=== PATIENT | male | born 1945 | race Caucasian/White ===

== ENCOUNTER 2016-10-12 16:51 | Observation (INO) | payer BC, MEDICARE ==
[2016-10-12] MEDS ORDERED: SODIUM CHLORIDE 0.9% 1,000 ML IV STA (17:27)
[2016-10-12] MEDS ORDERED: ASPIRIN 81 MG CHEW PO STA (17:27)
--- NOTE | 2016-10-12 17:29 | ED ---
General Adult HPI - General Source: patient, RN notes reviewed Mode of arrival: ambulatory Limitations: no limitations <Mildred Barboza - Last Filed: 10/12/16 19:36> <Jamey Reed - Last Filed: 10/12/16 19:58> - General Chief complaint: Nausea/Vomiting/Diarrhea Stated complaint: Vomiting, Chills Time Seen by Provider: 10/12/16 17:19 - History of Present Illness Initial comments: 71-year-old male presents to the emergency department with a chief complaint of lightheadedness. Patient states he was working in the garden today. Patient states that he just started to feel lightheaded. Patient states he became nauseous and vomited and he became clammy. Patient states he still feeling lightheaded and nauseous at this time. Patient states he just feels very tired. Patient states he had no chest pain or shortness of breath with this. Patient denies any significant heart history. Patient states he has had a stress test in the past he does not know when he said it was normal. Patient states he was concerned due to his symptoms were thought that he should be evaluated.Patient denies any recent fever, chills, shortness of breath, chest pain, back pain, abdominal pain, numbness or tingling, dysuria or hematuria, constipation or diarrhea, headaches or visual changes, or any other current symptoms. (Mildred Barboza) - Related Data Home Medications Medication Instructions Recorded Confirmed Aspirin EC [Ecotrin] 325 mg PO DAILY 10/12/16 10/12/16 Glucosamine/Chondro [place] A 1 tab PO DAILY 10/12/16 10/12/16 [Glucosamine-Chondroitin Tab] Multivitamins, Thera [Multivitamin 1 tab PO DAILY 10/12/16 10/12/16 (formulary)] [place]-3/Dha/Epa/Fish Oil [Fish Oil 1 cap PO DAILY 10/12/16 10/12/16 EC 1,200 mg Softgel] Allergies Allergy/AdvReac Type Severity Reaction Status Date / Time No Known Allergies Allergy Verified 10/12/16 17:51 Review of Systems ROS Other: All systems not noted in ROS Statement are negative. <Mildred Barboza - Last Filed: 10/12/16 19:36> ROS Other: All systems not noted in ROS Statement are negative. <Jamey Reed - Last Filed: 10/12/16 19:58> ROS Statement: Those systems with pertinent positive or pertinent negative responses have been documented in the HPI. Past Medical History Past Medical History: No Reported History History of Any Multi-Drug Resistant Organisms: None Reported Smoking Status: Never smoker Past Alcohol Use History: None Reported Past Drug Use History: None Reported <Mildred Barboza - Last Filed: 10/12/16 19:36> General Exam Limitations: no limitations <Mildred Barboza - Last Filed: 10/12/16 19:36> <Jamey Reed - Last Filed: 10/12/16 19:58> - General Exam Comments Initial Comments: General: The patient is awake and alert, in no distress, and does not appear acutely ill. Eye: Pupils are equal, round and reactive to light, extra-ocular movements are intact; there is normal conjunctiva bilaterally. No signs of icterus. Ears, nose, mouth and throat: There are moist mucous membranes and no oral lesions. Neck: The neck is supple, there is no tenderness. Cardiovascular: There is a regular rate and rhythm. No murmur, rub or gallop is appreciated. Respiratory: Lungs are clear to auscultation, respirations are non-labored, breath sounds are equal. No wheezes, stridor, rales, or rhonchi. Gastrointestinal: Soft, non-distended, non-tender abdomen without masses or organomegaly noted. There is no rebound or guarding present. No CVA tenderness. Bowel sounds are unremarkable. Back: There is no tenderness to palpation in the midline. There is no obvious deformity. No rashes noted. Musculoskeletal: Normal ROM, no tenderness, There is no pedal edema. There is no calf tenderness or swelling. Sensation intact. Pulses equal bilaterally 2+. Neurological: CN II-XII intact, There are no obvious motor or sensory deficits. Coordination appears grossly intact. Speech is normal. Skin: Skin is warm and dry and no rashes or lesions are noted. Psychiatric: Cooperative, appropriate mood & affect, normal judgment. (Mildred Barboza) Course <Mildred Barboza - Last Filed: 10/12/16 19:36> <Jamey Reed - Last Filed: 10/12/16 19:58> Vital Signs 10/12/16 10/12/16 10/12/16 17:15 18:06 18:07 Temperature 97 F L Pulse Rate 59 L Respiratory 16 Rate Blood Pressure 141/83 Blood Pressure 146/70 168/82 [Right Arm] O2 Sat by Pulse 97 Oximetry 10/12/16 19:17 Temperature 97.3 F L Pulse Rate 71 Respiratory 18 Rate Blood Pressure 146/76 Blood Pressure [Right Arm] O2 Sat by Pulse 96 Oximetry - Reevaluation(s) Reevaluation #1: 10/12/16 19:58 I personally do do a [id number] examination the patient did discuss findings with him and his . Patient currently is somewhat nauseated and lightheaded he has no chest pain at this time his initial cardiac workup was negative concern is for a sub-clinical evaluation at this time. We admitted for serial enzymes. I did discuss case Dr. Elliott (Jamey Reed) Medical Decision Making - Lab Data Result diagrams: 10/12/16 17:44 10/12/16 17:44 - EKG Data -: EKG Interpreted by Me <Mildred Barboza - Last Filed: 10/12/16 19:36> - Lab Data Result diagrams: 10/12/16 17:44 10/12/16 17:44 <Jamey Reed - Last Filed: 10/12/16 19:58> - Medical Decision Making 71-year-old male presents to emergency room chief complaint of lightheadedness. At this time patient's orthostatics revealed does show an elevation in blood pressure upon standing. His heart rate does increase as well. Time there is concern this could have a cardiac component. This time we will admit the patient for continued cardiac rule out. This is discussed with the patient who is in agreement with the plan. QUESTIONS have been answered. We will continue fluid restriction as well due to a mild aspect of dehydration noted. (Mildred Barboza ) - Lab Data Lab Results 10/12/16 10/12/16 10/12/16 Range/Units 17:44 17:44 17:44 WBC 9.3 (3.8-10.6) k/uL RBC 4.69 (4.30-5.90) m/uL Hgb 14.4 (13.0-17.5) gm/dL Hct 42.1 (39.0-53.0) % MCV 89.8 (80.0-100.0) fL MCH 30.8 (25.0-35.0) pg MCHC 34.3 (31.0-37.0) g/dL RDW 12.9 (11.5-15.5) % Plt Count 229 (150-450) k/uL Neutrophils % 77 % Lymphocytes % 10 % Monocytes % 6 % Eosinophils % 4 % Basophils % 1 % Neutrophils # 7.2 (1.3-7.7) k/uL Lymphocytes # 1.0 (1.0-4.8) k/uL Monocytes # 0.6 (0-1.0) k/uL Eosinophils # 0.4 (0-0.7) k/uL Basophils # 0.1 (0-0.2) k/uL PT (9.0-12.0) sec INR (<1.1) APTT (22.0-30.0) sec Sodium 144 (137-145) mmol/L Potassium 5.1 (3.5-5.1) mmol/L Chloride 107 (98-107) mmol/L Carbon Dioxide 26 (22-30) mmol/L Anion Gap 11 mmol/L BUN 29 H (9-20) mg/dL Creatinine 1.20 (0.66-1.25) mg/dL Est GFR (MDRD) Af Amer >60 (>60 ml/min/1.73 sqM) Est GFR (MDRD) Non-Af 59 (>60 ml/min/1.73 sqM) Glucose 108 H (74-99) mg/dL Calcium 9.7 (8.4-10.2) mg/dL Magnesium 2.2 (1.6-2.3) mg/dL Total Bilirubin 0.4 (0.2-1.3) mg/dL AST 39 (17-59) U/L ALT 37 (21-72) U/L Alkaline Phosphatase 88 (38-126) U/L Total Creatine Kinase 140 (55-170) U/L CK-MB (CK-2) 1.4 (0.0-2.4) ng/mL CK-MB (CK-2) Rel Index 1.0 Troponin I <0.012 (0.000-0.034) ng/mL Total Protein 7.3 (6.3-8.2) g/dL Albumin 4.6 (3.5-5.0) g/dL Urine Color Urine Appearance (Clear) Urine pH (5.0-8.0) Ur Specific [place] (1.001-1.035) Urine Protein (Negative) Urine Glucose (UA) (Negative) Urine Ketones (Negative) Urine Blood (Negative) Urine Nitrite (Negative) Urine Bilirubin (Negative) Urine Urobilinogen (<2.0) mg/dL Ur Leukocyte Esterase (Negative) 10/12/16 10/12/16 Range/Units 17:44 18:08 WBC (3.8-10.6) k/uL RBC (4.30-5.90) m/uL Hgb (13.0-17.5) gm/dL Hct (39.0-53.0) % MCV (80.0-100.0) fL MCH (25.0-35.0) pg MCHC (31.0-37.0) g/dL RDW (11.5-15.5) % Plt Count (150-450) k/uL Neutrophils % % Lymphocytes % % Monocytes % % Eosinophils % % Basophils % % Neutrophils # (1.3-7.7) k/uL Lymphocytes # (1.0-4.8) k/uL Monocytes # (0-1.0) k/uL Eosinophils # (0-0.7) k/uL Basophils # (0-0.2) k/uL PT 9.8 (9.0-12.0) sec INR 1.0 (<1.1) APTT 22.2 (22.0-30.0) sec Sodium (137-145) mmol/L Potassium (3.5-5.1) mmol/L Chloride (98-107) mmol/L Carbon Dioxide (22-30) mmol/L Anion Gap mmol/L BUN (9-20) mg/dL Creatinine (0.66-1.25) mg/dL Est GFR (MDRD) Af Amer (>60 ml/min/1.73 sqM) Est GFR (MDRD) Non-Af (>60 ml/min/1.73 sqM) Glucose (74-99) mg/dL Calcium (8.4-10.2) mg/dL Magnesium (1.6-2.3) mg/dL Total Bilirubin (0.2-1.3) mg/dL AST (17-59) U/L ALT (21-72) U/L Alkaline Phosphatase (38-126) U/L Total Creatine Kinase (55-170) U/L CK-MB (CK-2) (0.0-2.4) ng/mL CK-MB (CK-2) Rel Index Troponin I (0.000-0.034) ng/mL Total Protein (6.3-8.2) g/dL Albumin (3.5-5.0) g/dL Urine Color Yellow Urine Appearance Clear (Clear) Urine pH 6.5 (5.0-8.0) Ur Specific [place] 1.017 (1.001-1.035) Urine Protein Negative (Negative) Urine Glucose (UA) Negative (Negative) Urine Ketones Trace H (Negative) Urine Blood Negative (Negative) Urine Nitrite Negative (Negative) Urine Bilirubin Negative (Negative) Urine Urobilinogen <2.0 (<2.0) mg/dL Ur Leukocyte Esterase Negative (Negative) 10/12/16 17:43 normal sinus rhythm 68 bpm, normal axis, no atopy, no S-T depressions or elevations, (Mildred Barboza) Disposition Time of Disposition: 18:38 Decision Date: 10/12/16 Decision Time: 18:38 <Mildred Barboza - Last Filed: 10/12/16 19:36> <Jamey Reed - Last Filed: 10/12/16 19:58> Clinical Impression: Lightheadedness, Dehydration, Nausea & vomiting Disposition: ADMITTED IP TO THIS [facility] Condition: Stable Referrals: Geri Castaneda MD [Primary Care Provider] - 1-2 days
[2016-10-12 18:03] LABS: Basophils # (A) 0.1 k/uL (0-0.2); Basophils % (A) 1 %; CH 31.3; Eosinophils # (A) 0.4 k/uL (0-0.7); Eosinophils % (A) 4 %; HCT 42.1 % (39.0-53.0); HDW 2.57; HGB 14.4 gm/dL (13.0-17.5); Luc % (Auto) 2; Lymphocytes % (A) 10 %; MCH 30.8 pg (25.0-35.0); MCHC 34.3 g/dL (31.0-37.0); MCV 89.8 fL (80.0-100.0); Mean Platelet Volume 7.1; Monocytes # (A) 0.6 k/uL (0-1.0); Monocytes % (A) 6 %; Neutrophils # (A) 7.2 k/uL (1.3-7.7); Neutrophils % (A) 77 %; RBC 4.69 m/uL (4.30-5.90); RDW 12.9 % (11.5-15.5); WBC 9.3 k/uL (3.8-10.6)
[2016-10-12 18:04] LABS: ALT 37 U/L (21-72); AST 39 U/L (17-59); Alkaline Phosphatase 88 U/L (38-126); Anion Gap 11 mmol/L; Blood Urea Nitrogen 29 mg/dL (9-20); Calcium 9.7 mg/dL (8.4-10.2); Carbon Dioxide 26 mmol/L (22-30); Chloride 107 mmol/L (98-107); Glucose 108 mg/dL (74-99); Magnesium 2.2 mg/dL (1.6-2.3); Non-African American GFR(MDRD) 59 (>60 ml/min/1.73 sqM); Potassium 5.1 mmol/L (3.5-5.1); Sodium 144 mmol/L (137-145); Total Bilirubin 0.4 mg/dL (0.2-1.3); Total Protein 7.3 g/dL (6.3-8.2)
--- NOTE | 2016-10-12 18:05 | XR ---
EXAMINATION TYPE: XR chest 2V DATE OF EXAM: 10/12/2016 COMPARISON: NONE INDICATION: Chest pain, Vomiting TECHNIQUE: Frontal and lateral views of the chest are obtained. FINDINGS: The heart size is normal. The pulmonary vasculature is normal. The lungs are clear. The lateral projection there is some blunting the posterior costophrenic angle. Small posterior pleural effusion should be considered, likely on the left. IMPRESSION: 1. Possible small posterior left pleural effusion. 2. Two-view chest is otherwise unremarkable.
[2016-10-12 18:13] LABS: Partial Thromboplastin Time 22.2 sec (22.0-30.0); Prothrombin Time 9.8 sec (9.0-12.0)
[2016-10-12 18:18] LABS: Creatine Kinase 140 U/L (55-170)
[2016-10-12 18:19] LABS: Appearance,Urine Clear (Clear); Bilirubin,Urine Negative (Negative); Glucose,Urine (UA) Negative (Negative); Ketones,Urine Trace (Negative); Leukocyte Esterase,Urine Negative (Negative); Nitrite,Urine Negative (Negative); PH, Urine 6.5 (5.0-8.0); Protein,Urine Negative (Negative); Specific Gravity,Urine 1.017 (1.001-1.035); UA Billing (MACRO vs. MICRO) CHEM; Urobilinogen,Urine <2.0 mg/dL (<2.0)
[2016-10-12 18:30] LABS: Creatine Kinase MB 1.4 ng/mL (0.0-2.4); Troponin I <0.012 ng/mL (0.000-0.034)
[2016-10-12] MEDS ORDERED: NITROGLYCERIN SL TABS 0.4 MG TAB SUBLINGUAL PRN (19:37)
[2016-10-12] MEDS: SODIUM CHLORIDE 0.9% 1,000 ML IV SCH (20:37)
[2016-10-12] MEDS ORDERED: ONDANSETRON 4 MG/2 ML VIAL IVP PRN (22:04)
[2016-10-13 01:27] LABS: Creatine Kinase 111 U/L (55-170)
[2016-10-13 01:40] LABS: Creatine Kinase MB 1.3 ng/mL (0.0-2.4); Troponin I <0.012 ng/mL (0.000-0.034)
[2016-10-13] MEDS: SODIUM CHLORIDE 0.9% 1,000 ML IV SCH (05:58)
[2016-10-13 06:06] LABS: Cholesterol 133 mg/dL (<200); HDL Cholesterol 35 mg/dL (40-60); Triglycerides 102 mg/dL (<150)
[2016-10-13 06:21] LABS: Creatine Kinase 105 U/L (55-170)
[2016-10-13 06:35] LABS: Troponin I <0.012 ng/mL (0.000-0.034)
[2016-10-13] MEDS ORDERED: GLUCOSAMINE PO SCH (09:00)
[2016-10-13] MEDS ORDERED: CHONDRO SU A PO SCH (09:00)
[2016-10-13] MEDS ORDERED: NON-FORMULARY DRUG (Omega-3/Dha/Epa/Fish Oil [Fish Oil Ec 1,200 Mg Softgel] 1 CAP) PO SCH (09:00)
--- NOTE | 2016-10-13 09:12 | CONS ---
DATE OF CONSULTATION: Mr. Manzo is a 71-year-old gentleman with history of dizziness that he has had for a while, came in to hospital having had episodes of dizziness. He has symptoms of vertigo and these started while he was working in the garden and was somewhat dehydrated. Since coming in he is free of dizziness at rest. Cardiac enzymes have been negative, remains in sinus rhythm. EKG does not reveal ischemic changes. His dizziness is chronic, has been there for a while and I do not believe it is cardiac in origin. Past medical history significant for dizziness. Medications at home include: 1. Aspirin. 2. Multivitamin. 3. Fish oil. ALLERGIES: No known drug allergies. FAMILY HISTORY: Negative for premature coronary artery disease. SOCIAL HISTORY: Negative for smoking, ETOH abuse or drug abuse. REVIEW OF SYSTEMS: HEENT: Significant for dizziness. CARDIAC: As described above. RESPIRATORY: Negative. GI: Negative. GENITOURINARY: Negative. MUSCULOSKELETAL: Significant for arthritis. PSYCHOSOCIAL: Negative. ENDOCRINE: Negative. CONSTITUTIONAL: Negative. Oncological: Negative. The rest of the system review is not relevant. On exam, comfortable at rest. Vital signs are stable. There is no jugular venous distention. Carotid upstroke is normal. There is no bruit. Chest exam reveals good air entry bilaterally. Heart exam reveals first and second heart sounds. No gallop. No murmur, no rub. ABDOMEN: Soft, nontender. Exam of the extremities did not reveal edema. Peripheral pulses are felt. [employer] exam did not reveal focal neurological deficits. Labs show a hemoglobin of 14.4, platelet count is 229. Potassium is 5.1. BUN is 59. Creatinine is 1.2. Three sets of cardiac enzymes are negative. Lipid profile shows a total cholesterol of 133 with an LDL cholesterol of 78. ASSESSMENT: Dizziness, probably related inner ear problems. However, I am going to obtain a 2-D echo to assess his LV function and if the dizziness improves, he can be discharged home and I will consider further work-up as outpatient and I may do a carotid duplex on him if necessary and a stress test, but we do not need to do these at this time. Thank you for allowing us to participate in the care of this pleasant gentleman.
[2016-10-13] MEDS: ASPIRIN 325 MG TAB PO SCH (09:30)
--- NOTE | 2016-10-13 09:46 | P.HPIM ---
History of Present Illness H&P Date: 10/13/16 Chief Complaint: Dizziness lightheadedness A very pleasant 71-year-old male who stated on the day of admission developed onset of dizziness lightheadedness. Patient stated that he had been out working in the garden had not adequately hydrated himself and had not eaten. Patient states he has a history of dizziness was told by his PCP that he had an inner ear that sometimes causes a sensation of dizziness.. Patient stated with this episode he started to feel the sensation of lightheadedness. He felt nauseated did vomit and did break out in a sweat. He stated he also felt extremely tired and fatigued. Patient denied any chest pain or shortness of breath with the episode. Given the above clinical presentation patient felt he should be evaluated in the emergency room emergency room heart rate was in the 70s patient was afebrile the blood sugar in the emergency room was 108. Patient denies any prior episodes. Patient's gives no significant past medical history. States he takes no prescription medication takes a baby aspirin daily subsequent the patient was admitted to the services of the attending. A cardiology consultation requested. Cardiac enzymes 3 sets have been negative. In the emergency room the 12-lead EKG showed no acute changes to suggest ischemia. Patient states he did have a stress test in the past and he was told that there were no acute findings. Patient states he's normally an active individual with activity does not experience any shortness of breath dizziness lightheadedness or chest pain Patient states he is scheduled this Saturday for a routine yearly physical by his PCP Dr. castaneda Currently the patient has been up to the bathroom and back and ambulating in the room and states is not dizzy or lightheaded Review of Systems Essentially unremarkable except as mentioned in the present illness Past Medical History Past Medical History: Cancer Additional Past Medical History / Comment(s): SKIN CA (FOREHEAD) REMOVED, COLON POLYPS REMOVED(BENIGN), MIGRAINES, ARTHRITIS History of Any Multi-Drug Resistant Organisms: None Reported Additional Past Surgical History / Comment(s): COLONOSCOPY, SKIN CANCER ON FOREHEAD REMOVED, TOOTH EXTRACTED AND AN IMPLANT DONE. 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 NO SERVICE IN BACKGROUND. RETIRED FROM THE [employer]ICE WORKED IN [employer]. Smoking Status: Former smoker Past Alcohol Use History: Occasional Additional Past Alcohol Use History / Comment(s): SMAOKED FROM [id number] Past Drug Use History: None Reported - Past Family History Mother Family Medical History: Cancer Additional Family Medical History / Comment(s): BREAST CANCER Father Family Medical History: Myocardial Infarction (MS), Rheumatoid Arthritis (RA) Additional Family Medical History / Comment(s): SEVERAL MS'S Medications and Allergies Home Medications Medication Instructions Recorded Confirmed Type Aspirin EC [Ecotrin] 325 mg PO DAILY 10/12/16 10/12/16 History Glucosamine/Chondro [place] A 1 tab PO DAILY 10/12/16 10/12/16 History [Glucosamine-Chondroitin Tab] Multivitamins, Thera [Multivitamin 1 tab PO DAILY 10/12/16 10/12/16 History (formulary)] [place]-3/Dha/Epa/Fish Oil [Fish Oil 1 cap PO DAILY 10/12/16 10/12/16 History EC 1,200 mg Softgel] Allergies Allergy/AdvReac Type Severity Reaction Status Date / Time No Known Allergies Allergy Verified 10/12/16 22:01 Physical Exam Vitals: Vital Signs Temp Pulse Pulse Resp BP BP Pulse Ox 10/13/16 08:00 98.2 F 64 18 134/71 96 10/13/16 04:00 97.8 F 65 18 123/66 97 10/13/16 00:00 18 10/12/16 23:53 97.9 F 69 18 151/71 99 10/12/16 22:14 18 10/12/16 21:51 97.8 F 66 18 152/77 96 10/12/16 20:33 97.9 F 64 18 153/74 96 10/12/16 20:10 69 95 10/12/16 19:17 97.3 F L 71 18 146/76 96 10/12/16 18:07 168/82 10/12/16 18:06 146/70 10/12/16 17:15 97 F L 59 L 16 141/83 97 Intake and Output 10/12/16 10/13/16 10/13/16 22:59 06:59 14:59 Intake Total 240 Balance 240 Intake: Oral 240 Other: # Voids 1 1 Weight 83.915 kg Physical exam 71-year-old gentleman resting in bed does not appear in any acute distress pleasant cooperative oriented 3 Lungs essentially clear adequate air movement on room air no cough noted Heart S1-S2 audible and regular no murmur noted denying chest pain abdomen soft nontender reports no nausea vomiting Extremities no edema noted Results CBC & Chem 7: 10/12/16 17:44 10/12/16 17:44 Labs: Abnormal Lab Results - Last 24 Hours (Table) 10/12/16 10/12/16 10/13/16 Range/Units 17:44 18:08 05:22 BUN 29 H (9-20) mg/dL Glucose 108 H (74-99) mg/dL HDL Cholesterol 35 L (40-60) mg/dL Urine Ketones Trace H (Negative) Assessment and Plan Plan: Impression Present on admission dizziness lightheadedness suspect due to dehydration Present on admission hyperkalemia suspect due to dehydration Present on admission acute renal insufficiency suspect due to dehydration History of an inner ear problem Plan Cardiology recommends a 2-D echocardiogram to assess the LV function if the dizziness improves from a cardiac perspective patient could be discharged home cardiology indicates that further workup as an outpatient could be done such as carotid Doppler a possible stress test but did not need to be done at this time Probable discharge within the next 24 hours Increase activity evaluate Patient is scheduled this October 15 to see his PCP Dr. Anusha Castaneda for a yearly physical The above dictated assessment and findings were discussed with dr holloway . Impression and the plan of care have been dictated as directed. Adrienne Kang nurse practitioner acting as a scribe for dr holloway
[2016-10-13] MEDS ORDERED: MULTIVITAMINS, THERA 1 EACH TAB PO SCH (12:00)
[2016-10-13] MEDS ORDERED: SODIUM CHLORIDE 0.9% 1,000 ML IV STA (12:09)
[2016-10-13] MEDS ORDERED: MECLIZINE 12.5 MG TAB PO PRN (12:11)
--- NOTE | 2016-10-13 12:42 | ECHOF ---
Referral Reason:chest pain MEASUREMENTS -------- HEIGHT: 177.8 cm WEIGHT: 83.9 kg BP: 140/40 RVIDd: 2.6 cm (< 3.3) IVSd: 1.2 cm (0.6 - 1.1) LVIDd: 4.2 cm (3.9 - 5.3) LVPWd: 1.2 cm (0.6 - 1.1) IVSs: 1.6 cm LVIDs: 3.5 cm LVPWs: 1.3 cm LA Diam: 3.9 cm (2.7 - 3.8) LAESV Index (A-L): 37.80 ml/m Ao Diam: 3.4 cm (2.0 - 3.7) AV Cusp: 1.8 cm (1.5 - 2.6) LA Diam: 4.6 cm (2.7 - 3.8) MV EXCURSION: 21.866 mm (> 18.000) MV EF SLOPE: 92 mm/s (70 - 150) EPSS: 0.4 cm MV E Andre: 0.99 m/s MV DecT: 223 ms MV A Andre: 0.79 m/s MV E/A Ratio: 1.26 AR PHT: 585 ms RAP: 5.00 mmHg RVSP: 42.71 mmHg FINDINGS -------- Sinus rhythm. This was a technically adequate study. There is mild concentric left ventricular hypertrophy. Overall left ventricular systolic function is low-normal with, an EF between 50 - 55 %. The right ventricle is normal in size. LA is moderately dilated 34-39 ml/m2 The right atrial size is normal. There is mild aortic valve sclerosis. There is mild aortic regurgitation. Mild mitral annular calcification present. Mild mitral regurgitation is present. Mild tricuspid regurgitation present. There is mild pulmonary hypertension. The right ventricular systolic pressure, as measured by Doppler, is 42.71mmHg. Trace/mild (physiologic) pulmonic regurgitation. The aortic root size is normal. There is no pericardial effusion. CONCLUSIONS -------- 1. There is mild concentric left ventricular hypertrophy. 2. The right ventricular systolic pressure, as measured by Doppler, is 42.71mmHg. 3. Trace/mild (physiologic) pulmonic regurgitation. 4. The aortic root size is normal. 5. There is no pericardial effusion. 6. Overall left ventricular systolic function is low-normal with, an EF between 50 - 55 %. 7. LA is moderately dilated 34-39 ml/m2 8. There is mild aortic valve sclerosis. 9. There is mild aortic regurgitation. 10. Mild mitral annular calcification present. 11. Mild mitral regurgitation is present. 12. Mild tricuspid regurgitation present. 13. There is mild pulmonary hypertension. SIDE FRAMER: Mirna Velasquez RDCS
[2016-10-14 06:53] LABS: Basophils % (A) 1 %; CH 30.7; CHCM 33.2; Eosinophils # (A) 0.6 k/uL (0-0.7); Eosinophils % (A) 9 %; HCT 40.2 % (39.0-53.0); HDW 2.43; HGB 13.3 gm/dL (13.0-17.5); Luc # (Auto) 0.18; Luc % (Auto) 3; Lymphocytes # (A) 1.6 k/uL (1.0-4.8); Lymphocytes % (A) 26 %; MCH 30.6 pg (25.0-35.0); MCV 92.6 fL (80.0-100.0); Monocytes # (A) 0.5 k/uL (0-1.0); Monocytes % (A) 7 %; Neutrophils # (A) 3.5 k/uL (1.3-7.7); Neutrophils % (A) 55 %; RBC 4.34 m/uL (4.30-5.90); RDW 13.3 % (11.5-15.5); WBC 6.3 k/uL (3.8-10.6); WBC (Perox) 6.39
[2016-10-14 07:08] LABS: ALT 30 U/L (21-72); AST 24 U/L (17-59); Alkaline Phosphatase 68 U/L (38-126); Anion Gap 6 mmol/L; Blood Urea Nitrogen 17 mg/dL (9-20); Calcium 8.7 mg/dL (8.4-10.2); Carbon Dioxide 29 mmol/L (22-30); Chloride 106 mmol/L (98-107); Glucose 89 mg/dL (74-99); Non-African American GFR(MDRD) >60 (>60 ml/min/1.73 sqM); Potassium 4.8 mmol/L (3.5-5.1); Sodium 141 mmol/L (137-145); Total Bilirubin 0.4 mg/dL (0.2-1.3); Total Protein 5.9 g/dL (6.3-8.2)
[2016-10-14] MEDS: ASPIRIN 325 MG TAB PO SCH (08:26)
[2016-10-14 08:38] VITALS: BP 135/71; PULSE 64; RESP 16; TEMP 98
--- NOTE | 2016-10-14 10:07 | P.DS ---
Providers Date of admission: 10/12/16 20:49 Expected date of discharge: 10/14/16 Attending physician: Patt Elliott Consults: 10/12/16 19:37 Consult Physician Urgent Consulting Provider: Leonardo Marsh Consult Reason/Comments: lightheadedness Do you want consulting provider notified?: Yes, Notify in am Primary care physician: Geri Castaneda [facility] Course: A very pleasant 71-year-old male who stated on the day of admission developed onset of dizziness lightheadedness. Patient stated that he had been out working in the garden had not adequately hydrated himself and had not eaten. Patient states he has a history of dizziness was told by his PCP that he had an inner ear that sometimes causes a sensation of dizziness.. Patient stated with this episode he started to feel the sensation of lightheadedness. He felt nauseated did vomit and did break out in a sweat. He stated he also felt extremely tired and fatigued. Patient denied any chest pain or shortness of breath with the episode. Given the above clinical presentation patient felt he should be evaluated in the emergency room emergency room heart rate was in the 70s patient was afebrile the blood sugar in the emergency room was 108. Patient denies any prior episodes. Patient's gives no significant past medical history. States he takes no prescription medication takes a baby aspirin daily subsequent the patient was admitted to the services of the attending. A cardiology consultation requested. Cardiac enzymes 3 sets have been negative. In the emergency room the 12-lead EKG showed no acute changes to suggest ischemia. Patient states he did have a stress test in the past and he was told that there were no acute findings. Patient states he's normally an active individual with activity does not experience any shortness of breath dizziness lightheadedness or chest pain Patient states he is scheduled this Saturday for a routine yearly physical by his PCP Dr. castaneda Patient was started on IV fluid for rehydration orthostatic blood pressures were negative patient underwent an echocardiogram which showed left contiguous systolic function low normal with an EF between 50 and 55%. Mild pulmonary hypertension. Labs were repeated on the fourth potassium 4.8 creatinine 1 the BUNs 17 hemoglobin 13.3 white count 6.3. Chest x-ray showed no acute pulmonary process patient denied any dizziness lightheadedness chest pain or shortness of breath. Patient was up ambulating independently on the unit was asymptomatic. Patient was felt to be hemodynamically stable and appropriate proceed with a discharge to home. Cardiology indicated no further cardiac workup at this time Impression Present on admission dizziness lightheadedness suspect due to dehydration Present on admission hyperkalemia suspect due to dehydration Present on admission acute renal insufficiency suspect due to dehydration History of an inner ear problem The above dictated assessment and findings were discussed with dr elliott . Impression and the plan of care have been dictated as directed. Adrienne Kang nurse practitioner acting as a scribe for dr elliott Patient Condition at Discharge: Stable Plan - Discharge Summary New Discharge Prescriptions: New Meclizine [Antivert] 12.5 mg PO QID PRN tab PRN Reason: Vertigo Continue Multivitamins, Thera [Multivitamin (formulary)] 1 tab PO DAILY Aspirin EC [Ecotrin] 325 mg PO DAILY [place]-3/Dha/Epa/Fish Oil [Fish Oil EC 1,200 mg Softgel] 1 cap PO DAILY Glucosamine/Chondro Norton A [Glucosamine-Chondroitin Tab] 1 tab PO DAILY Discharge Medication List Aspirin EC [Ecotrin] 325 mg PO DAILY 10/12/16 [History] Glucosamine/Chondro Norton A [Glucosamine-Chondroitin Tab] 1 tab PO DAILY 10/12/16 [ History] Multivitamins, Thera [Multivitamin (formulary)] 1 tab PO DAILY 10/12/16 [History ] [place]-3/Dha/Epa/Fish Oil [Fish Oil EC 1,200 mg Softgel] 1 cap PO DAILY 10/12/16 [History] Meclizine [Antivert] 12.5 mg PO QID PRN tab 10/14/16 [Rx] Follow up Appointment(s)/Referral(s): Franco Cuenca MD [STAFF PHYSICIAN] - 4 Weeks (Message was left at office to call patient to arrange a follow up appointment. If you do not hear from office within a week, please call to follow up.) Geri Castaneda MD [Primary Care Provider] - 1-2 days Patient Instructions/Handouts: Dehydration (GEN) Discharge Disposition: HOME SELF-CARE
== END 2016-10-14 10:40 | disposition home or self-care (01) ==
LOC: EC 16:51 → 3OBS 20:49
PROVIDERS: ADMIT Internal Medicine; ATTEND Internal Medicine
DX: E86.0 Dehydration (principal); Z79.899 Other long term (current) drug therapy; Z79.82 Long term (current) use of aspirin; R11.2 Nausea with vomiting, unspecified; M19.90 Unspecified osteoarthritis, unspecified site; Z86.010 Personal history of colon polyps; G43.909 Migraine, unspecified, not intractable, without status migrainosus; Z85.828 Personal history of other malignant neoplasm of skin; Z87.891 Personal history of nicotine dependence; Z80.3 Family history of malignant neoplasm of breast; Z82.49 Family history of ischemic heart disease and other diseases of the circulatory system; E87.5 Hyperkalemia; N28.9 Disorder of kidney and ureter, unspecified; I27.2 Other secondary pulmonary hypertension
CPT/HCPCS: 96360; 96361; 99285; 36415; 93005; 93306; 80061; 80053 ×2; 82550 ×2; 82553 ×2; 83735; 84484 ×2; 85025 ×2; 85610; 85730; 81003; 71020; G0378 ×3

== ENCOUNTER → 2017-01-28 | Outpatient (CLI) | payer BC, MEDICARE ==
[2017-01-28 10:26] LABS: Blood Urea Nitrogen 21 mg/dL (9-20); Non-African American GFR(MDRD) >60 (>60 ml/min/1.73 sqM)
--- NOTE | 2017-01-28 11:27 | CT ---
EXAMINATION TYPE: CT sinus w con DATE OF EXAM: 01/28/2017 COMPARISON: NONE HISTORY: Left sided facial pain and headache per patient. Dizziness and chronic sinusitis per order. CT DLP: 572 mGycm Automated exposure control for dose reduction was used. CONTRAST: CT scan of the facial bones is performed with IV Contrast, patient injected with 100 mL of Omnipaque 300. TECHNIQUE: CT scan of the sinuses is performed without contrast, axial images are obtained, coronal r eformatted images are also reviewed. FINDINGS: There is mild mucosal thickening involving ethmoid sinuses bilaterally. There is more patch y opacity throughout the anterior and posterior ethmoid sinuses. There is mild mucosal thickening inv olving the frontal sinuses with more focal opacification inferiorly in right frontal sinus could refl ect irregular mucosal thickening or more likely some acute sinus disease. Maxillary and sphenoid sinu ses bilaterally are felt within normal limits. The ostiomeatal complex is patent bilaterally on the c oronal images seen best on coronal image 21. Nasal septum is deviated to right of midline. Visualized portion of mastoid air cells show no abnormal opacification. The globes are intact bilate rally. No suspicious enhancement is noted. IMPRESSION: Acute on chronic paranasal sinus disease involving bilateral ethmoid sinus and right fron matty sinus as detailed above.
== END | disposition home or self-care (01) ==
LOC: RADCTMAIN 09:52
PROVIDERS: ATTEND Family Medicine
DX: J34.89 Other specified disorders of nose and nasal sinuses (principal); J32.0 Chronic maxillary sinusitis
CPT/HCPCS: 82565; 84520; 36415; 70487; Q9967

== ENCOUNTER 2017-12-30 10:42 | Day surgery (SDC) | payer BC, MEDICARE ==
[2017-12-26 10:24] VITALS: BMI 25.4
[~2017-12-30 10:42] MED LIST: LACTATED RINGERS 1,000 ML IV SCH
[2017-12-30 11:49] VITALS: RESP 18; TEMP 97.9
[2017-12-30] MEDS ORDERED: LIDOCAINE 1% 20 ML VIAL (10MG/ML) FOR IV START INTRADERMA ONE (11:56)
[2017-12-30] MEDS ORDERED: LIDOCAINE 1% INJ 10MG/ML (20 ML MDV) ONE (12:33)
[2017-12-30] MEDS ORDERED: PROPOFOL 10 MG/ML 20 ML VIAL IV ONE (12:33)
--- NOTE | 2017-12-30 13:19 | P.PCN ---
Date of Procedure: 12/30/17 Procedure(s) Performed: Procedure: Colonoscopy and polypectomy. Preoperative diagnosis: Screening for neoplasia, patient has history of polyps. Was operated diagnosis: 2 small distal sigmoid polyps snared but no large polyps or cancer. Preparation: HalfLytely prep. Sedation: Was provided by anesthesia. Brief clinical history: The patient is a 72-year-old male who is scheduled for this evaluation for screening for neoplasia because of history of polyps. His last exam was in March 2012. The patient has no abdominal complaints, bleeding or anemia. Procedure: With the patient on his left lateral decubitus position and after informed consent and adequate sedation, the perianal area was inspected and it did not show any fissures or fistulas. There were no masses felt on digital rectal examination. The Olympus CFQ 160L video colonoscope was then inserted in the rectum in the usual fashion and advanced to the cecum. There were 2 small polyps in the distal sigmoid which were snared and suctioned. No large polyps or cancer was seen or any other significant pathology. I retroflexed the endoscope in the rectum before the endoscope was withdrawn. The patient tolerated the procedure well. Plan: The patient was reassured. He will follow up with you as planned consideration can be given for repeat exam in 5 years depending on his overall health at that time. He would be discussing that with you.
[2017-12-30 13:26] VITALS: BP 138/69; PULSE 57
== END 2017-12-30 13:43 | disposition home or self-care (01) ==
LOC: ORWHC2ENDO 10:42
DX: Z12.11 Encounter for screening for malignant neoplasm of colon (principal); D12.5 Benign neoplasm of sigmoid colon; M19.90 Unspecified osteoarthritis, unspecified site; Z79.82 Long term (current) use of aspirin; Z79.899 Other long term (current) drug therapy; Z86.010 Personal history of colon polyps; Z85.828 Personal history of other malignant neoplasm of skin
CPT/HCPCS: 45385; 88305; J2001; J2704

== ENCOUNTER 2021-01-04 10:18 | Day surgery (SDC) | payer BC, OTHER ==
[2020-12-30 15:34] VITALS: BMI 26.5
[~2021-01-04 10:18] MED LIST changes: +CYCLOPENTOLATE 1% OPHTH SOLN 2 ML BTL OP PRN; +MOXIFLOXACIN HCL 0.5% DROPS 3 ML BTL OP PRN; +PHENYLEPHRINE 2.5% OPHTH DRP 2ML OP PRN; +PILOCARPINE 2% OPHTH DROPS 15 ML BTL OP PRN; +TETRACAINE 0.5% OPHTH (PF) DROPS 4 ML BTL OP PRN; +TIMOLOL 0.5% OPHTH DROPS 5 ML BTL OP PRN; +TOBRA-DEXAMET 0.3-0.1% OPHTH DROPS 2.5 ML BTL OPHTHALMIC PRN
[2021-01-04 11:17] VITALS: RESP 16; TEMP 97.6
[2021-01-04] MEDS ORDERED: LIDOCAINE 1% (10MG/ML) FOR IV START INTRADERMA ONE (11:17)
[2021-01-04] MEDS ORDERED: MIDAZOLAM 2 MG/2 ML VIAL ONE (11:35)
[2021-01-04] MEDS ORDERED: fentaNYL (PF) 50 MCG/ML 2 ML AMP ONE (11:35)
[2021-01-04] MEDS ORDERED: EPINEPHrine (PF) 0.3 ML in BALANCED SALT IRRIG SOLN COMB2 500 ML IRRIGATION ONE (11:46)
[2021-01-04] MEDS ORDERED: LIDOCAINE 1% (PF) 10MG/ML VIAL MISCELLANE ONE (11:49)
[2021-01-04] MEDS ORDERED: BALANCED SALT IRRIG SOLN COMB2 15 ML IRRIG.SOLN INTRAOCULA ONE (11:49)
[2021-01-04] MEDS ORDERED: DUOVISC KIT (GREEN BOX) INTRAOCULA ONE (11:49)
--- NOTE | 2021-01-04 12:11 | P.OP ---
Date of Procedure: 01/04/21 Preoperative Diagnosis: NS Postoperative Diagnosis: same Procedure(s) Performed: PIOL< OD Implants: MX60E 22.00 Anesthesia: MAC Surgeon: Kenneth Cha Pathology: none sent Condition: stable Disposition: same day Indications for Procedure: blurry vision Operative Findings: no complications
[2021-01-04 12:40] VITALS: BP 142/77; PULSE 53
--- NOTE | 2021-01-05 09:20 | OP ---
OPERATIVE REPORT DATE OF SERVICE: January 04, 2021 PROCEDURES: Phacoemulsification of cataract and intraocular lens implant of the right eye. PREOPERATIVE DIAGNOSES: Nuclear sclerosis. SURGEON: Dr. Kenneth Cha PREOPERATIVE DIAGNOSIS: Nuclear sclerosis. POSTOPERATIVE DIAGNOSIS: Same. OPERATION: Clear cornea phacoemulsification of cataract right OD eye. ESTIMATED BLOOD LOSS: Zero. SPECIMEN TAKEN: None. NARRATIVE: After obtaining the appropriate consent, the patient was brought to the Operating Room where the patient was placed under cardiac monitoring and prepped and draped in the usual sterile manner. At the 11 o'clock position a 15 degree super sharp blade was used to create a paracentesis followed by instillation of 1% Xylocaine MPF 50:50 mix with BSS into the anterior chamber. This was followed by DuoVisc to stabilize the anterior chamber. At the 9 o'clock position a self-sealing corneal flap incision was created using 2.8 mm fercho keratome. A cystotome was used to initiate a continuous tear capsulorrhexis which was completed with the Utrata forceps. A Binkhorst cannula was used to hydrodissect the lens nucleus followed by hydrodelineation. Phacoemulsification of the lens was performed utilizing phacochop in 203.03 seconds at 14% power. The remaining cortical material was removed using the irrigation aspiration mode followed by additional 1% Xylocaine MPF into the anterior chamber followed by viscoelastic to stabilize the capsular bag. A [employer]ch [employer] Lomb MX 60E 22.0 diopter posterior chamber lens was placed into the capsular bag without difficulty. The remaining viscoelastic material was removed from the anterior chamber with the irrigation/aspiration. Balanced salt solution was used to normalize the intraocular pressure. The incision was checked for watertight integrity. The patient then received two drops of 0.5% timolol followed by two drops Vigamox, was lightly patched and shielded in the usual manner. There were no complications from the procedure. The patient tolerated the procedure well and was returned to recovery in good condition. MMODL / IJN: [id number] /
== END 2021-01-04 13:03 | disposition home or self-care (01) ==
LOC: OR 10:18
PROVIDERS: ATTEND Ophthalmology
DX: H25.11 Age-related nuclear cataract, right eye (principal); Z79.82 Long term (current) use of aspirin; H25.12 Age-related nuclear cataract, left eye; H52.13 Myopia, bilateral; H52.4 Presbyopia; H52.223 Regular astigmatism, bilateral; M19.90 Unspecified osteoarthritis, unspecified site
CPT/HCPCS: 66984; C1780; J2250; J0171; J3010; J2001

== ENCOUNTER 2021-01-27 06:18 | Day surgery (SDC) | payer BC, OTHER ==
[2021-01-24 10:06] VITALS: BMI 26.5
[~2021-01-27 06:18] MED LIST changes: +DEXAMETHASONE SOD PHOSPHATE 4 MG/ML 1 ML VIAL IV ONE; +LIDOCAINE 1% (10MG/ML) FOR IV START INTRADERMA PRN; +MIDAZOLAM 2 MG/2 ML VIAL IV PRN; +ONDANSETRON 4 MG/2 ML VIAL IVP ONE; -PILOCARPINE 2% OPHTH DROPS 15 ML BTL OP PRN; -TOBRA-DEXAMET 0.3-0.1% OPHTH DROPS 2.5 ML BTL OPHTHALMIC PRN
[2021-01-27] MEDS ORDERED: HYDROmorphone 0.5 MG/0.5 ML SYRINGE IVP PRN (07:00)
[2021-01-27 07:14] VITALS: TEMP 97.1
[2021-01-27] MEDS ORDERED: MIDAZOLAM 2 MG/2 ML VIAL ONE (07:40)
[2021-01-27] MEDS ORDERED: EPINEPHrine (PF) 0.3 ML in BALANCED SALT IRRIG SOLN COMB2 500 ML IRRIGATION ONE (08:02)
[2021-01-27] MEDS ORDERED: LIDOCAINE 1% (PF) 10MG/ML VIAL MISCELLANE ONE (08:03)
[2021-01-27] MEDS ORDERED: BALANCED SALT IRRIG SOLN COMB2 15 ML IRRIG.SOLN INTRAOCULA ONE (08:03)
[2021-01-27] MEDS ORDERED: HYALURONATE SODIUM INTRAOCULAR 1 EACH SYRINGE (12MG/ML) INTRAOCULA ONE (08:03)
--- NOTE | 2021-01-27 08:16 | P.OP ---
Date of Procedure: 01/27/21 Preoperative Diagnosis: NS Postoperative Diagnosis: same Procedure(s) Performed: PIOL, OS Implants: MX60E 21.50 Anesthesia: MAC Surgeon: Kenneth Cha Pathology: none sent Condition: stable Disposition: same day Indications for Procedure: blurry vision Operative Findings: no complications
[2021-01-27 08:22] VITALS: PULSE 57; RESP 14
[2021-01-27 08:36] VITALS: BP 144/79
--- NOTE | 2021-01-27 15:01 | OP ---
OPERATIVE REPORT DATE OF SURGERY: 01/27/2021. PROCEDURE: Phacoemulsification of cataract and intraocular lens implant to the left eye. PREOPERATIVE DIAGNOSIS: Nuclear sclerosis. POSTOPERATIVE DIAGNOSIS: Nuclear sclerosis. ESTIMATED BLOOD LOSS: Zero. SPECIMEN TAKEN: None. NARRATIVE: After obtaining the appropriate consent, the patient was brought to the Operating Room where the patient was placed under cardiac monitoring and prepped and draped in the usual sterile manner. At the 5 o'clock position a 15-degree super sharp blade was used to create a paracentesis followed by instillation of 1% Xylocaine MPF 50:50 mix with BSS into the anterior chamber. This was followed by Amvisc to stabilize the anterior chamber. At the 3 o'clock position a self-sealing corneal flap incision was created using 2.8 mm fercho keratome. A cystotome was used to initiate a continuous tear capsulorrhexis which was completed with the Utrata forceps. A Binkhorst cannula was used to hydrodissect the lens nucleus followed by hydrodelineation. Phacoemulsification of the lens was performed utilizing phacochop in 23.33 seconds at 17% power. The remaining cortical material was removed using the irrigation aspiration mode followed by additional 1% Xylocaine MPF into the anterior chamber followed by viscoelastic to stabilize the capsular bag. A [employer]ch [employer] Lomb MX60E 21.5 dipoters posterior chamber lens was placed into the capsular bag without difficulty. The remaining viscoelastic material was removed from the anterior chamber with the irrigation/aspiration. Balanced salt solution was used to normalize the intraocular pressure. The incision was checked for watertight integrity. The patient then received two drops of 0.5% timolol followed by two drops Vigamox, was lightly patched and shielded in the usual manner. There were no complications from the procedure. The patient tolerated the procedure well and was returned to recovery in good condition. MMODL / IJN: [id number] /
== END 2021-01-27 09:13 | disposition home or self-care (01) ==
LOC: OR 06:18
PROVIDERS: ATTEND Ophthalmology
DX: H25.11 Age-related nuclear cataract, right eye (principal); H53.8 Other visual disturbances
CPT/HCPCS: 66984; C1780; J2250; J1100; J2405; J0171; J2001

== ENCOUNTER → 2022-01-22 | Outpatient (CLI) | payer MEDICARE, BC ==
--- NOTE | 2022-01-22 12:20 | MR ---
EXAMINATION TYPE: MR brain wo/w con, MR angio head wo con DATE OF EXAM: 01/22/2022 COMPARISON: None HISTORY: CEREBRAL ANEURYSM, NONRUPTURED, CISNEROS (accession [id number]), CEREBRAL ANEURYSM, NONRUPTURED, cisneros (accession [id number]) TECHNIQUE: MRI brain Multiplanar, multisequence images of the brain and brainstem is performed without and with IV contrast, utilizing 8 mL intravenous Gadavist . MRA Axial [id number]-bh-ykroxp with MIP reconstruction of the intracranial vasculature. FINDINGS: Diffusion weighted images demonstrate no evidence of a recent infarct or other diffusion ab normality. There is no extra-axial fluid collection. Scattered high T2 signal throughout the deep wh ite matter. The ventricular system and cisternal spaces are normal in size and appearance. The brai n volume is age appropriate. Midline structures demonstrate normal morphology. The craniocervical junction appears within normal limits. Post contrast images demonstrate no abnormal enhancement. The dural venous sinuses appear pa tent. The visualized sinuses are clear and the globes are intact. Vertebral arteries: The vertebral arteries are patent. The left vertebral artery is dominant. Basilar artery: The basilar artery is intact. The basilar artery bifurcation is normal. Internal Carotid arteries: The cervical, petrous, cavernous and supraclinoid segments are normal. FRANCES: Patent with no evidence of aneurysm. ACOM: Present without evidence of aneurysm. MCA: Patent. No left sided aneurysm. There is a fusiform 3 mm aneurysm of the right sylvian portion o f the middle cerebral artery (series 301 image 201). BAK[employer] SUPERVISOR: origin of the right posterior cerebral artery. PCOM: Hypoplastic left. Atrophic left transverse sinus and dominant right. Subarachnoid granulations are seen in the sagittal sinus. IMPRESSION: 1. No evidence of intracranial mass or acute/subacute infarct. 2. Nonspecific white matter changes, likely secondary to small vessel ischemic disease. 3. 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
== END | disposition home or self-care (01) ==
LOC: RADMRIMAIN 10:29
PROVIDERS: ATTEND Psychiatry & Neurology Neurology
DX: I67.1 Cerebral aneurysm, nonruptured (principal)
CPT/HCPCS: 70544; 70553; A9585

== ENCOUNTER → 2022-12-31 | Outpatient (CLI) | payer BC, MEDICARE ==
--- NOTE | 2022-12-31 20:44 | MR ---
EXAMINATION TYPE: MR angio head wo con DATE OF EXAM: 12/31/2022 COMPARISON: MRI brain 01/22/2022 HISTORY: Aneurysm, F/U comparison to prior MRA 01-22-22. CONTRAST: None TECHNIQUE: Multiplanar multiecho imaging on a 3.0 Eliz magnet is performed through the [facility]. 3-D adxw-zn-wdimpt imaging is performed. Source images are reviewed on the computer in the axi al plane. Reconstructed images rotating on the computer are reviewed. FINDINGS: The internal carotid arteries bifurcate normally into A1 and M1 segments. The A2 segments are normal. Middle cerebral artery branches are normal. Distal right middle cerebral artery branche s within the sylvian fissure has some fusiform prominence measuring 0.3 cm. This is slightly more so than the prior examination. Series 201 image 140. Anterior communicating artery is small but patent. The right posterior communicating artery is patent. The left posterior communicating artery is absent. Vertebrobasilar arteries within the twizd-dg-uxca are normal. Posterior cerebral vasculature is norm al. No obstructions are identified. No significant flow-limiting stenosis is evident. IMPRESSIONS: 1. There continues to be some fusiform prominence of a distal right middle cerebral artery branch in the sylvian fissure measuring 0.3 cm.
== END | disposition home or self-care (01) ==
LOC: RADMRIMAIN 11:29
PROVIDERS: ATTEND Psychiatry & Neurology Neurology
DX: I67.1 Cerebral aneurysm, nonruptured (principal)
CPT/HCPCS: 70544

== ENCOUNTER → 2023-12-23 | Outpatient (CLI) | payer BC ==
--- NOTE | 2024-01-21 09:16 | MR ---
Site ID synapse default Patient Bonita Manzo B ID [id number] Age/Gender: 78Y, M Order # N/A Procedure MRA head wo con Date 12/23/2023 9:10:37 AM EXAMINATION TYPE: MR angio head wo con DATE OF EXAM: 01/02/2024 COMPARISON: MRA head 12/31/1944, 01/22/2022 HISTORY: One-year follow-up post aneurysm, trigeminal neuralgia TECHNIQUE: Time of flight images focusing on the [place] of [place] were performed without contrast. FINDINGS: The internal carotid arteries bifurcate normally into A1 and M1 segments. The A2 segments are normal. Middle cerebral artery branches are normal. Distal right middle cerebral artery branches within the sylvian fissure has some fusiform prominence measuring 2.6 mm however evaluation is limited due to la st slice on the sequence. Previously reported 3 mm. Anterior communicating artery is small but patent. origin of the right [place] GROWER. Vertebrobasilar art eries within the efsxz-us-fleg are normal. Dominant left vertebral artery. Posterior cerebral vascula ture is normal. Basilar artery is patent. No obstructions are identified. No significant flow-limitin g stenosis is evident. IMPRESSIONS: Continued mild fusiform prominence of a distal right middle cerebral artery branch in the sylvian fis sure measuring 2.6 mm however evaluation is limited due to last obtained slice on the sequence.
== END | disposition home or self-care (01) ==
LOC: RADMRIMAIN 10:00
PROVIDERS: ATTEND Psychiatry & Neurology Neurology
DX: I67.1 Cerebral aneurysm, nonruptured (principal); G50.0 Trigeminal neuralgia
CPT/HCPCS: 70544